=== PATIENT | female | born 1980 | race Caucasian/White ===

== ENCOUNTER 2016-06-10 22:53 | Emergency (ER) | payer BC ==
[~2016-06-10] VITALS: Ht 180.3 cm; Wt 82.0 kg
[~2016-06-10 22:53] MED LIST: IBUP600 PO; PERI8.6T PO; PREN0.01 PO
[2016-06-10 22:56] VITALS: BP 131/78; PULSE 77; RESP 18; TEMP 98.1; O2SAT 100
[2016-06-10] MEDS ORDERED: SODIUM CHLOR 0.9% 1000 ML INJ 1,000 ML IV SCH (23:35)
--- NOTE | 2016-06-10 23:42 | PD ---
HPI Chief Complaint: Abdominal Pain Time Seen by Provider: 23:30 Travel History International Travel<30 days: No Contact w/Intl Traveler<30days: No Traveled to known affect area: No History of Present Illness HPI 36-year-old female here for evaluation of mid and epigastric abdominal discomfort. Symptoms started at around 3:30 PM today and have been constant, slightly worse with palpation, radiates up into her chest, described as pressure /burning sensation. No history of cardiac disease. There is family history of cardiac disease in her father. She has felt nauseous but not had any vomiting. No history of abdominal surgeries. No urinary symptoms. Last bowel movement was around 3:00 PM and was normal. PFSH Past Medical History ?: Not LMP: 3 WKS AGO Social History Alcohol Use: No Tobacco Use: No Allergies-Medications (Allergen,Severity, Reaction): Coded Allergies: Penicillin (Verified Allergy, Unknown, 06/10/16) Reported Meds & Prescriptions Reported Meds & Active Scripts Active No Active Prescriptions or Reported Medications Review of Systems Except as stated in HPI: all other systems reviewed are Neg Physical Exam Narrative GENERAL: Well-developed, well-nourished, comfortable, no acute distress. SKIN: Warm and dry. No rash. HEAD: Atraumatic. Normocephalic. EYES: Pupils equal and round. No scleral icterus. No injection or drainage. ENT: Mucous membranes pink and moist. NECK: Trachea midline. No JVD. CARDIOVASCULAR: Regular rate and rhythm. No murmur appreciated. RESPIRATORY: No accessory muscle use. Clear to auscultation. Breath sounds equal bilaterally. GASTROINTESTINAL: Abdomen soft, nondistended. Moderate periumbilical and epigastric tenderness without rebound or guarding. Rest of abdomen is soft and nontender. Negative Perez sign. Normal bowel sounds. MUSCULOSKELETAL: No obvious deformities. No clubbing. No cyanosis. No edema. NEUROLOGICAL: Awake and alert. No obvious cranial nerve deficits. Motor grossly within normal limits. Normal speech. PSYCHIATRIC: Appropriate mood and affect; insight and judgment normal. Data Data Last Documented VS Vital Signs Date Time Temp Pulse Resp B/P Pulse Ox O2 Delivery O2 Flow Rate FiO2 06/10/16 23:43 16 06/10/16 22:56 98.1 77 131/78 100 Orders Complete Blood Count With Diff (06/10/16 23:35) Comprehensive Metabolic Panel (06/10/16 23:35) Lipase (06/10/16 23:35) Prothrombin Time / Inr (Pt) (06/10/16 23:35) Act Partial Throm Time (Ptt) (06/10/16 23:35) Urinalysis - C+S If Indicated (06/10/16 23:35) Ct Abd/Pel W Iv Contrast(Rout) (06/10/16 23:35) Iv Access Insert/Monitor (06/10/16 23:35) Ecg Monitoring (06/10/16 23:35) Oximetry (06/10/16 23:35) Morphine Inj (Morphine Inj) (06/10/16 23:45) Ondansetron Inj (Zofran Inj) (06/10/16 23:45) Sodium Chlor 0.9% 1000 Ml Inj (Ns 1000 M (06/10/16 23:35) Sodium Chloride 0.9% Flush (Ns Flush) (06/10/16 23:45) Electrocardiogram (06/10/16 23:35) Ed Urine Pregnancytest Poc (06/10/16 23:35) Ckmb (Isoenzyme) Profile (06/10/16 23:35) Troponin I (06/10/16 23:35) CKMB (06/10/16 23:50) CKMB% (06/10/16 23:50) Iohexol 350 Inj (Omnipaque 350 Inj) (06/11/16 00:53) Al-Mag Hy-Si 40-40-4 Mg/Ml Liq (Mag-Al P (06/11/16 01:30) Lidocaine 2% Viscous (Xylocaine 2% Visco (06/11/16 01:30) Pantoprazole (Protonix) (06/11/16 01:30) Labs Laboratory Tests Test 06/10/16 23:50 White Blood Count 11.2 TH/MM3 Red Blood Count 4.57 MIL/MM3 Hemoglobin 12.5 GM/DL Hematocrit 36.2 % Mean Corpuscular Volume 79.3 FL Mean Corpuscular Hemoglobin 27.5 PG Mean Corpuscular Hemoglobin 34.6 % Concent Red Cell Distribution Width 14.4 % Platelet Count 290 TH/MM3 Mean Platelet Volume 7.8 FL Neutrophils (%) (Auto) 75.3 % Lymphocytes (%) (Auto) 17.3 % Monocytes (%) (Auto) 6.2 % Eosinophils (%) (Auto) 0.8 % Basophils (%) (Auto) 0.4 % Neutrophils # (Auto) 8.4 TH/MM3 Lymphocytes # (Auto) 1.9 TH/MM3 Monocytes # (Auto) 0.7 TH/MM3 Eosinophils # (Auto) 0.1 TH/MM3 Basophils # (Auto) 0.0 TH/MM3 CBC Comment DIFF FINAL Differential Comment Prothrombin Time 10.5 SEC Prothromb Time International 1.0 RATIO Ratio Activated Partial 25.7 SEC Thromboplast Time Urine Color YELLOW Urine Turbidity CLEAR Urine pH 6.0 Urine Specific [place] 1.019 Urine Protein NEG mg/dL Urine Glucose (UA) NEG mg/dL Urine Ketones NEG mg/dL Urine Occult Blood NEG Urine Nitrite NEG Urine Bilirubin NEG Urine Urobilinogen LESS THAN 2.0 MG/DL Urine Leukocyte Esterase SMALL Urine RBC 1 /hpf Urine WBC 5 /hpf Urine Squamous Epithelial 3 /hpf Cells Urine Renal Epithelial Cells <1 /hpf Urine Bacteria RARE /hpf Urine Mucus FEW /lpf Microscopic Urinalysis Comment CULT NOT INDICATED Sodium Level 140 MEQ/L Potassium Level 3.5 MEQ/L Chloride Level 105 MEQ/L Carbon Dioxide Level 24.9 MEQ/L Anion Gap 10 MEQ/L Blood Urea Nitrogen 13 MG/DL Creatinine 1.10 MG/DL Estimat Glomerular Filtration 56 ML/MIN Rate Random Glucose 101 MG/DL Calcium Level 8.7 MG/DL Total Bilirubin 0.4 MG/DL Aspartate Amino Transf 16 U/L (AST/SGOT) Alanine Aminotransferase 20 U/L (ALT/SGPT) Alkaline Phosphatase 65 U/L Total Creatine Kinase 188 U/L Creatine Kinase MB 1.3 NG/ML Troponin I LESS THAN 0.02 NG/ML Total Protein 7.7 GM/DL Albumin 4.1 GM/DL Lipase 147 U/L MDM Medical Decision Making Medical Screen Exam Complete: Yes Emergency Medical Condition: Yes Interpretation(s) EKG: Sinus, rate 65, normal axis, normal intervals, no acute ischemic abnormality. Differential Diagnosis Appendicitis, pancreatitis, gastritis, peptic ulcer disease, ACS, hepatobiliary disease Narrative Course Vital signs are within normal limits. CBC is essentially unremarkable. CMP is remarkable for creatinine 1.1, GFR 56, otherwise unremarkable. Lipase is 147. Cardiac enzymes are negative. UA is not suggestive of UTI. CT abdomen pelvis: No definite acute CT findings in the abdomen or pelvis. Pain was somewhat improved with morphine. The patient was made aware of all findings. She is resting comfortably. She does have some epigastric discomfort /tenderness. No peritoneal signs. She is likely suffering from gastritis or peptic ulcer disease and would benefit from gastroenterology follow-up as an outpatient. I do not believe her pain is cardiac in nature. I believe she is stable for discharge home with outpatient follow-up. I will discharge her home with a prescription for Protonix. She was informed on when to return to the emergency department. She verbalizes understanding and agreement with plan. Diagnosis Primary Impression: Epigastric abdominal pain Referrals: Monica Kinsey MD 3 days Primary Care Physician 3 days Additional Instructions: Follow-up with feed and farm management adviser Dr. Kinsey or a feed and farm management adviser of your choice this week. Return to the emergency department for worsening symptoms or any other concerns as discussed. Scripts Tramadol 50 Mg Tab50 Mg PO Q6H PRN (PAIN) #10 TAB Ref 0 Prov:Jasson Chadwick MD 06/11/16 Pantoprazole (Protonix)40 Mg Tab40 Mg PO DAILY #30 TAB Ref 0 Prov:Jasson Chadwick MD 06/11/16 Disposition: 01 DISCHARGE HOME Condition: Stable Jasson Chadwick MD Jun 10, 2016 23:42
[2016-06-10] MEDS ORDERED: MORPHINE SULFATE 4 MG/ML INJ IV PUSH ONE (23:45)
[2016-06-10] MEDS ORDERED: ONDANSETRON HCL 4 MG/2 ML VIAL IVP ONE (23:45)
[2016-06-10] MEDS ORDERED: SODIUM CHLORIDE 0.9% FLUSH 5 ML FLUSH IVF PRN (23:45)
[2016-06-11 00:06] LABS: BACTERIA, URINE RARE /hpf; BLOOD, URINE NEG (NEG); COMMENT (UR) CULT NOT INDICATED; CULTURE IF INDICATED CULT NOT INDICATED; GLUCOSE,URINE NEG (NEG); KETONE, URINE NEG (NEG); MUCUS URINE FEW /lpf (OCC); NITRITE,URINE NEG (NEG); RENAL EPITHELIAL CELLS <1 /hpf; SQUAMOUS EPITHELIAL CELL URINE 3 /hpf (0-5); URINE COLOR YELLOW (YELLW/STRAW)
[2016-06-11 00:09] LABS: AUTOMATED NEUTROPHIL # 8.4 TH/MM3 (1.8-7.7); BASOPHIL % 0.4 % (0.0-2.0); EOSINOPHIL # 0.1 TH/MM3 (0-0.4); EOSINOPHIL % 0.8 % (0.0-4.0); HEMATOCRIT 36.2 % (35.0-46.0); HEMO FLAGS DIFF FINAL; LYMPH % 17.3 % (9.0-44.0); LYMPHOCYTE # 1.9 TH/MM3 (1.0-4.8); MEAN CELL VOLUME 79.3 FL (80.0-100.0); MEAN CORPUSCULAR HEMOGLOBIN 27.5 PG (27.0-34.0); MEAN CORPUSCULAR HGB CONC 34.6 % (32.0-36.0); MONO % 6.2 % (0.0-8.0); NEUT % 75.3 % (16.0-70.0); PLATELET COUNT 290 TH/MM3 (150-450); RED BLOOD COUNT 4.57 MIL/MM3 (4.00-5.30); RED CELL DISTRIBUTION WIDTH 14.4 % (11.6-17.2); WHITE BLOOD COUNT 11.2 TH/MM3 (4.0-11.0)
[2016-06-11 00:21] LABS: ANION GAP 10 MEQ/L (5-15); AST (GOT) 16 U/L (15-37); BICARBONATE 24.9 MEQ/L (21.0-32.0); BLOOD UREA NITROGEN 13 MG/DL (7-18); CHLORIDE 105 MEQ/L (98-107); GLOMERULAR FILTRATION RATE 56 ML/MIN (>89); POTASSIUM 3.5 MEQ/L (3.5-5.1); SODIUM (NA) 140 MEQ/L (136-145)
[2016-06-11 00:23] LABS: APTT (PATIENT) 25.7 SEC (24.3-30.1); PROTHROMBIN TIME - PATIENT 10.5 SEC (9.8-11.6)
[2016-06-11 00:27] LABS: ALKALINE PHOSPHATASE 65 U/L (45-117); ALT (GPT) 20 U/L (10-53); CREATINE KINASE 188 U/L (26-192); TOTAL BILIRUBIN ADULT 0.4 MG/DL (0.2-1.0)
[2016-06-11 00:39] LABS: CKMB 1.3 NG/ML (0.5-3.6)
[2016-06-11] MEDS ORDERED: IOHEXOL 350 MG/ML 10 ML VIAL (for RAD DIAG) IV ONE (00:53)
--- NOTE | 2016-06-11 01:19 | RADRPT ---
EXAM DATE/TIME: 06/11/2016 00:41 [facility] COMPARISON: No previous studies available for comparison. INDICATIONS : Umbilical pain and nausea today IV CONTRAST: 94 cc Omnipaque 350 (iohexol) IV ORAL CONTRAST: No oral contrast ingested. RADIATION DOSE: 10.05 CTDIvol (mGy) MEDICAL HISTORY : None SURGICAL HISTORY : None. ENCOUNTER: Initial ACUITY: 1 day PAIN SCALE: 5/10 LOCATION: Umbilical TECHNIQUE: Volumetric scanning of the abdomen and pelvis was performed. Using automated exposure control and ad justment of the mA and/or kV according to patient size, radiation dose was kept as low as reasonably achievable to obtain optimal diagnostic quality images. FINDINGS: LOWER LUNGS: The visualized lower lungs are clear. LIVER: Homogeneous density without lesion. There is no dilation of the biliary tree. No calcified gallston es. SPLEEN: Normal size without lesion. PANCREAS: Within normal limits. KIDNEYS: Normal in size and shape. There is no mass, stone or hydronephrosis. ADRENAL GLANDS: Within normal limits. VASCULAR: There is no aortic aneurysm. BOWEL/MESENTERY: There is mild nonspecific content distention of distal small bowel. The cecum appears decompressed. I do not see a dilated appendix or definite inflammatory changes. Remainder the colon is grossly unrem arkable. ABDOMINAL WALL: Within normal limits. RETROPERITONEUM: There is no lymphadenopathy. BLADDER: No wall thickening or mass. REPRODUCTIVE: Within normal limits. INGUINAL: There is no lymphadenopathy or hernia. MUSCULOSKELETAL: Within normal limits for patient age. CONCLUSION: No definite acute CT findings in the abdomen or pelvis. Andreas Lin MD on June 11, 2016 at 1:11 Board Certified Radiologist. This report was verified electronically.
[2016-06-11 01:30] VITALS: BP 125/71; PULSE 66; RESP 16; O2SAT 100
[2016-06-11] MEDS ORDERED: PANTOPRAZOLE SOD 40 MG DELAYED RELEASE TAB PO ONE (01:30)
[2016-06-11] MEDS ORDERED: LIDOCAINE VISCOUS 2% SOLN 15 ML UDC PO ONE (01:30)
[2016-06-11] MEDS ORDERED: ALUMINUM/MAGNESIUM/SIMETH 30 ML CUP PO ONE (01:30)
[2016-06-11] MEDS ORDERED: TRAM50TA PO (01:30)
[2016-06-11] MEDS ORDERED: PROT40TA PO (01:30)
--- NOTE | 2016-06-11 10:07 | EKG ---
Date Performed: 06/10/2016 Time Performed: 23:53:55 PTAGE: 36 years EKG: Sinus rhythm WITH SINUS ARRHYTHMIA NORMAL ECG NO PREVIOUS TRACING DOCTOR: Girma Gonzalez Interpretating Date/Time 06/11/2016 10:03:31
== END 2016-06-11 02:26 | disposition home or self-care (01) ==
LOC: NEPA 22:53
DX: R10.13 Epigastric pain (principal); R11.0 Nausea
CPT/HCPCS: 74177; 80053; 81001; 82550; 82552; 83690; 84484; 84703; 85025; 85610; 85730; 93005; 96374; 96375; 99284; J2270; J2405; J7030; Q9967